=== PATIENT | male | born 1985 | race Caucasian/White ===

== ENCOUNTER 2019-11-07 10:12 | Emergency (ER) | payer OTHER ==
[~2019-11-07] VITALS: Ht 180.3 cm; Wt 117.9 kg
[2019-11-07 10:37] LABS: Basophils # (auto) 0.2 uL; Basophils % (auto) 3.4 % (0.0-2.0); Eosinophils # (auto) 0 uL; Lymphocytes # (auto) 1.6 uL; Monocytes # (auto) 0.3 uL; Neutrophils # (auto) 2.5 uL
[2019-11-07 10:39] LABS: Eosinophils % (auto) 0.7 % (0.0-7.0); Hematocrit 52.7 % (41.0-53.0); Hemoglobin 18.6 g/dL (13.5-17.5); Lymphocytes % (auto) 35.5 % (10.0-50.0); Mean Corpuscular Hemoglobin 33.7 pg (28.0-32.0); Mean Corpuscular Hgb Conc. 35.3 g/dL (32.0-36.0); Mean Corpuscular Volume 95.5 fL (80.0-100.0); Neutrophils % (auto) 54.4 % (37.0-80.0); Nucleated Red Blood Cells % 0.7 %; Platelet Count (auto) 214 10^3/uL (140-450); Red Blood Cells 5.51 10^6/uL (4.5-5.90); Red Cell Distribution Width 13.6 % (11.8-14.3); White Blood Cell 4.5 10^3/uL (4.4-10.8)
[2019-11-07 10:57] LABS: Albumin 3.2 g/dL (3.4-5.0); Anion Gap 13 (5-15); Blood Urea Nitrogen 15 mg/dL (7-18); Calcium 7.9 mg/dL (8.5-10.1); Carbon Dioxide 20 mmol/L (21-32); Chloride 103 mmol/L (98-107); Glucose 118 mg/dL (74-106); Potassium 3.9 mmol/L (3.5-5.1); Sodium 136 mmol/L (136-145)
[2019-11-07 11:05] LABS: Alkaline Phosphatase 75 U/L (45-117); BUN/Creatinine Ratio 12.5; Bilirubin, Total 0.8 mg/dL (0.2-1.0); GFR African American 90 mL/min; GFR Non-African American 74 mL/min
[2019-11-07 11:32] LABS: Alanine Aminotransferase 306 U/L (16-61); Total Protein 7.7 g/dL (6.4-8.2)
[2019-11-07 11:33] LABS: Aspartate Aminotransferase 415 U/L (15-37)
[2019-11-07 12:55] LABS: Urine Bacteria NONE SEEN /hpf (None Seen); Urine Blood Negative /uL (Negative); Urine Specific Gravity 1.021 (1.001-1.035); Urine WBC <1 /hpf (0 - 3)
[2019-11-07 15:26] VITALS: BP 135/82
== END 2019-11-07 15:32 | disposition home or self-care (01) ==
LOC: ER 10:12
DX: K52.9 Noninfective gastroenteritis and colitis, unspecified (principal); E86.0 Dehydration; E46 Unspecified protein-calorie malnutrition
CPT/HCPCS: 36415; 74176; 80053; 81001; 84484; 85025